=== PATIENT | female | born 1960 | race Caucasian/White ===

== ENCOUNTER 2023-07-08 09:24 | Day surgery (SDC) | payer BC, SELFPAY ==
[2023-07-07 07:20] VITALS: BMI 22.0
[2023-07-08 10:08] VITALS: BMI 22.0
[2023-07-08] MEDS: Lactated Ringers 1,000 ML 100 ML IVCONT (10:14)
[2023-07-08 10:25] VITALS: BP 140/80; PULSE 73; RESP 18; TEMP 36.8; O2SAT 97
--- NOTE | 2023-07-08 10:35 | P.CONAN_ITS ---
Documented by User: Keisha Gil NP 07/07/23 10:39 HPI - Anesthesia Eval Consult details Narrative: 62yo F for Colonoscopy [facility] Past Medical History Medical History (Updated 07/08/23 @ 10:29 by Enedelia Alex RN) EtOH dependence Surgical History Surgical History (Updated 07/07/23 @ 07:20 by Negra Torrez RN) H/O tubal ligation Hx of inguinal hernia repair H/O colonoscopy Social History Social History Patient Tobacco Use Status: Former Tobacco user Are you DNR?: No Advance Directives: No Advance Directives Information Provided: Yes Nutrition Risks: No Nutritional Risk Meds Allergies Allergy/AdvReac Type Severity Reaction Status Date / Time No Known Allergies Allergy Verified 07/08/23 10:29 [No Known Allergies*] Home Medications ?Medication ?Instructions ?Recorded ?Confirmed ?Last Taken ?Type multivitamin 1 tab PO DAILY 07/07/23 07/07/23 Unknown History Exam Height,Weight and Vital Signs: Height 5 ft 4.5 in Weight 58.967 kg Assessment and Plan Assessment Anesthesia Assessment: Chart Reviewed Documented by User: Daylin Lopez DO 07/08/23 10:38 HPI - Anesthesia Eval Consult details Narrative: 62yo F for Colonoscopy. ETOH - 5 drinks daily [facility] Past Medical History Medical History (Updated 07/08/23 @ 10:29 by Enedelia Alex RN) EtOH dependence Family History Family history of problems with anesthesia: No Surgical History Surgical History (Updated 07/07/23 @ 07:20 by Negra Torrez RN) H/O tubal ligation Hx of inguinal hernia repair H/O colonoscopy History of Problems with Anesthesia: No Social History Social History Patient Tobacco Use Status: Former Tobacco user Are you DNR?: No Advance Directives: No Advance Directives Information Provided: Yes Nutrition Risks: No Nutritional Risk Meds Allergies Allergy/AdvReac Type Severity Reaction Status Date / Time No Known Allergies Allergy Verified 07/08/23 10:29 [No Known Allergies*] Home Medications ?Medication ?Instructions ?Recorded ?Confirmed ?Last Taken ?Type multivitamin 1 tab PO DAILY 07/07/23 07/07/23 Unknown History Exam Exam Date and Time: July 08, 2023 1035 Height,Weight and Vital Signs: Height 5 ft 4.5 in Weight 58.967 kg Vital Signs Temperature 98.2 F 07/08/23 10:25 Pulse Rate 73 07/08/23 10:25 Respiratory Rate 18 07/08/23 10:25 Blood Pressure 140/80 H 07/08/23 10:25 Pulse Oximetry 97 07/08/23 10:25 Oxygen Delivery Method Room Air 07/08/23 10:25 Temperature 98.2 F 07/08/23 10:25 Pulse Rate 73 07/08/23 10:25 Respiratory Rate 18 07/08/23 10:25 Blood Pressure 140/80 H 07/08/23 10:25 Pulse Oximetry 97 07/08/23 10:25 Oxygen Delivery Method Room Air 07/08/23 10:25 Airway Mallampati Class: II TM Dist: >3cm Neck ROM: Full Loose/Missing/Broken Teeth: No (patient denies any loose or broken teeth) Heart: S1S2 Lungs: CTAB Assessment and Plan Assessment Anesthesia Assessment: Anesthesia Plan Discussed and Chart Reviewed Final Anesthetic Review Family History of Problems with Anesthesia: No History of Problems with Anesthesia: No NPO: Yes ASA Class: II Final Preanesthetic Review: No Changes in Pt Med Stat, Meds/Allgs Chart Reviewed, Consent Obtained/Reviewed and Anes Risks/Benef Reviewed Patient Risk: Low Procedure Risk: Low Anesthetic Plan Anesthetic Plan: MAC: and Agree w/ Assess. and Plan Disposition: Standard PACU
--- NOTE | 2023-07-08 12:17 | PM.OP ---
Brief Operative Note Date of Service: 07/08/23 Pre-op diagnosis: Screening Post-op diagnosis: other (Colon polyps) Procedure: Colonoscopy to the cecum and TI with hot snare polypectomy x 7 with placement of 3 Resolution clips in the AC and 2 Resolution clips in the TC Surgeon: Marcus Negrete MD Anesthesia: MAC Was an Administrative Job Titles used for this Procedure?: No Estimated blood loss (mL): 2.0 Pathology: other (A. Polyps at 40cm B. Transverse colon polyps C. Ascending colon polyps) Condition: stable Disposition: PACU
[2023-07-08 12:18] VITALS: BP 106/76; PULSE 82; RESP 16; TEMP 36.3; O2SAT 98
[2023-07-08 12:33] VITALS: BP 111/76; PULSE 74; RESP 16; TEMP 36.3; O2SAT 995
--- NOTE | 2023-07-08 13:04 | OP_ITS ---
DATE OF SERVICE: 07/08/2023 SURGEON: Marcus Negrete MD INDICATIONS: Colorectal cancer screening and history of tubular adenomas. Full consent has been obtained from her for this, including risks of bleeding and perforation. PREOPERATIVE DIAGNOSIS: POSTOPERATIVE DIAGNOSIS: PROCEDURE PERFORMED: Colonoscopy to the cecum and terminal ileum with hot snare polypectomy with placement of Resolution clips. ESTIMATED BLOOD LOSS: COMPLICATIONS: ANESTHESIA: Monitored anesthesia care. ASSISTANTS: SPECIMENS: PREOPERATIVE DIAGNOSES: Colorectal cancer screening and personal history of colon polyps. POSTOPERATIVE DIAGNOSES: Colorectal cancer screening, personal history of colon polyps, multiple colon polyps, diverticulosis, and internal hemorrhoids. DESCRIPTION OF PROCEDURE: The patient was placed in the left lateral decubitus position. The digital rectal exam revealed no abnormalities. The Olympus video pediatric colonoscope was then entered into the rectum and advanced easily to the cecum. Once in the cecum I identified normal-appearing cecal pouch with appendiceal orifice and a normal-appearing ileocecal valve. The terminal ileum was cannulated and appeared normal. The scope was withdrawn back in the colon. The entire cecum and ileocecal valve appeared normal. The scope was then slowly withdrawn assessing all mucosal surfaces carefully. Preparation was excellent. In the very proximal ascending colon, were 2 polyps. Both of these were flat, but raised and approximately 10 to 12 mm in diameter. They were both removed in piecemeal fashion by hot snare polypectomy and recovered by suction. Both polypectomy sites appeared to be free of any residual polyp tissue, but did have some minimal oozing that required cauterization with the tip of the snare on 1 polypectomy site. The other site stop spontaneously. I placed 2 Resolution clips on to the polypectomy site that required some cauterization. I put another Resolution clip on to the other polypectomy site. All the clips were deployed well and there was good hemostasis. In the transverse colon were 3 polyps. These were all approximately 10 to 12 mm in diameter and were all removed by hot snare polypectomy and recovered by suction. Two of the polypectomy sites also had some transient oozing. A Resolution clip was placed on each of those with good deployment and good hemostasis. At 40 cm, were 2 polyps, each approximately 10 to 12 mm in diameter. These were both snared with hot snare polypectomy and recovered by suction. The polypectomy sites appeared clean, without any sign of residual polyp nor bleeding. I did not visualize any other polyps, colitis, or angiodysplasia. There was a mild amount of sigmoid diverticulosis. In the rectum, the scope was retroflexed visualizing internal hemorrhoids, but no other pathology. The rectal mucosa appeared normal. The scope was straightened and withdrawn from the patient. She tolerated the procedure well and was returned to the recovery area in stable condition. IMPRESSION: 1. Colon polyps. 2. Diverticulosis. 3. Internal hemorrhoids. PLAN: The results of the pathology will be checked. Given her previous history of polyps and today's findings, I would recommend a repeat colonoscopy within 1 to 2 years. She was advised not to use any aspirin or NSAIDs for at least 1 week. This has been discussed with her . MD RITA Smith/WANDA / [id number] MTDD
== END 2023-07-08 13:03 | disposition home or self-care (01) ==
PROVIDERS: Visit Provider Internal Medicine
PROC: 0DJD8ZZ Inspection of Lower Intestinal Tract, Via Natural or Artificial Opening Endoscopic (ICD-10-PCS; CPT 45378; principal; 2023-07-08 10:30)
DX: Z12.11 Encounter for screening for malignant neoplasm of colon (principal); D12.2 Benign neoplasm of ascending colon; D12.3 Benign neoplasm of transverse colon; D12.6 Benign neoplasm of colon, unspecified; K57.30 Diverticulosis of large intestine without perforation or abscess without bleeding; K64.8 Other hemorrhoids; Z86.010 Personal history of colon polyps
CPT/HCPCS: 45385; 88305; J2704